=== PATIENT | female | born 1990 | race Caucasian/White ===

== ENCOUNTER 2021-10-13 09:05 | Emergency (ER) | payer OTHER, SELFPAY ==
--- NOTE | ~2021-10-13 | XR_ITS ---
EXAMINATION: XR chest 2V DATE: 10/13/2021 11:38 INDICATION: Cough. TECHNIQUE: Frontal and lateral views of the chest were obtained. COMPARISON: Chest 2 views 09/14/2014 FINDINGS: The chest demonstrates clear lungs without pneumonia, pleural effusion, or pneumothorax. Th e heart size is normal. IMPRESSION: 1. No acute cardiopulmonary disease. Reviewed, dictated and finalized at location A. [facility]
[2021-10-13 10:29] VITALS: BP 93/75; PULSE 88; RESP 18; TEMP 36.9; O2SAT 99
--- NOTE | 2021-10-13 11:26 | ED.GENADULT ---
HPI - General Adult General Chief complaint: Upper Respiratory Infection Stated complaint: sinus pain/pressure Time Seen by Provider: 10/13/21 10:09 Source: patient Mode of arrival: ambulatory Limitations: no limitations History of Present Illness HPI narrative: Patient presents for evaluation of respiratory symptoms. She indicates she has had sinus congestion, mucopurulent drainage from bilateral nares, nonproductive cough, fatigue, fever and sore throat for the last 3 days. She denies any chills, nausea, vomiting, chest pain, abdominal pain, diarrhea. Her daughter has similar symptoms. She smokes 1 pack/day. States she had Covid back in 2019. She is not been vaccinated. She has taken dayquil without much improvement in her symptoms. She states I know I don't have COVID . No additional complaints or concerns. Related Data Allergies Allergy/AdvReac Type Severity Reaction Status Date / Time levofloxacin Allergy Mild RED ITCHY Verified 10/13/21 10:36 Review of Systems Review of Systems: CONSTITUTIONAL: Reports fever and fatigue. Denies chills, or sweats. EYES: Denies visual changes, redness, or discharge. ENT: Reports sinus congestion, drainage, sore throat. CARDIOVASCULAR: Denies chest pain, palpitations, or edema. RESPIRATORY: Reports nonproductive cough. Denies shortness of breath. GASTROINTESTINAL: Denies abdominal pain, nausea, vomiting, or diarrhea. GENITOURINARY: Denies dysuria or hematuria. SKIN: Denies rash or itching. MUSCULOSKELETAL: Denies back pain, joint pain, or myalgia. NEUROLOGIC: Denies headache, numbness, dizziness, or weakness. PSYCHIATRIC: Denies anxiety or depression. [facility] Past Medical History Medical History Hx LEEP (loop electrosurgical excision procedure), cervix, No pertinent past medical history Surgical History Surgical History History of delivery History of dilatation and curettage Family History Family History Father No pertinent past medical history Social History Social History (Updated 10/13/21 @ 11:30 by Travis Lovell, RIMA, ) Smoking packs per day: 1 Smoking cigarettes per day: 20.0 Smoking status: Current every day smoker Substance use: never Living arrangements: with family Gender identity (if verbalized by the patient): Female Spiritual care concerns: No Exam Narrative: GENERAL: Well-appearing, well-nourished, and in no acute distress. HEAD: Normocephalic, atraumatic. EYES: PERRLA and EOMI. ENT: Nares clear, no rhinorrhea or epistaxis. Mucous membranes moist. Oropharynx without tonsillar hypertrophy exudate or other lesions. There is posterior pharyngeal erythema. Uvula is midline. Bilateral TMs pearly sen nonbulging NECK: Supple. No adenopathy or masses. No carotid bruits or JVD CHEST: Clear to auscultation. No respiratory distress. No wheezes rales or rhonchi HEART: Regular rate and rhythm. No murmur heard. Normal peripheral pulses. ABDOMEN: Soft, nontender, nondistended, normal active bowel sounds. EXTREMITIES: Normal range of motion. No edema. SKIN: Warm, dry, no rash. NEURO: No focal deficits. Alert and oriented x3. PSYCH: Normal mood and affect. Course Course Emergency Course: This is a 31-year-old female who presented with complaints of sinus congestion and drainage, sore throat and cough. Strep was negative. Chest x-ray was negative. She refused influenza and Covid swabs. Will tx with augmentin in event that her strep was false negative. She also meets criteria for ABRS. She should increase hydration and follow up with PCP this coming week. She should return for worsening symptoms. Pt in agreement with plan of care. Vital Signs Vital signs: Vital Signs Temperature 36.9 C 10/13/21 10:29 Pulse Rate 88 10/13/21 10:29 Respir
--- NOTE | 2021-10-13 12:26 | PC.NURSE ---
pt refused the covid and flu test
[2021-10-13 13:32] VITALS: BP 106/71; PULSE 86; RESP 18; O2SAT 99
== END 2021-10-13 13:36 | disposition home or self-care (01) ==
PROVIDERS: Emergency Provider Nurse Practitioner
DX: J02.9 Acute pharyngitis, unspecified (principal); J32.9 Chronic sinusitis, unspecified; B96.89 Other specified bacterial agents as the cause of diseases classified elsewhere; F17.210 Nicotine dependence, cigarettes, uncomplicated; Z86.16 Personal history of COVID-19
CPT/HCPCS: 71046; 87081; 87880; 99283